=== PATIENT | female | born 1980 | race Caucasian/White ===

== ENCOUNTER 2020-02-02 10:01 | Emergency (ER) | payer MEDICAID, SELFPAY ==
[2020-02-02] VITALS (7 sets, daily range): BP systolic 113–142; BP diastolic 68–85; PULSE 68–76; RESP 18; TEMP 36.7; O2SAT 96–97; BMI 28.3
--- NOTE | 2020-02-02 10:01 | ECG_ITS ---
APPROVED REPORT Exam: Resting ECG HR:74 bpm ECG Measurements Heart Rate 74 AXES OK 128 P 30 QRSd 86 QRS 7 QT 380 T 20 QTc 421 <Conclusion> Normal sinus rhythm Normal ECG Electronically signed by : Mason Anderson, 02/02/2020 16:51:13
--- NOTE | 2020-02-02 10:16 | HMH.EDGENADL ---
ED Disposition Clinical Impression: Atypical chest pain Disposition: Home, Self-Care Condition on Discharge: Good Instructions: DI for Atypical Chest Pain Additional Instructions: Additional instructions for CHEST PAIN: See your physician or cardiology as soon as possible for further evaluation. Return immediately if worsening chest pain, vomiting, shortness of breath, fever, coughing of blood. Referrals: Provider,MD Annamaria [Referring] - Ricky De Guzman MD [Staff Physician] - - Critical Care Critical Care Time: No Attestation: On , the high probability of a clinically significant, sudden or life threatening deterioration of the following system(s) required my full and direct attention, intervention and personal management. The time I documented below is in addition to time spent performing reported procedures but includes the following listed in this critical care notation. Medical Decision Making - Lance Inquiry Pt receiving controlled substance: No Vital Signs: 02/02/20 10:09 02/02/20 10:23 02/02/20 10:51 Temperature 98.1 F Temperature Source Oral Pulse Rate Pulse Rate [Right Radial] 74 74 76 Respiratory Rate 18 Blood Pressure Blood Pressure [Right Arm] 142/85 H 142/85 H 122/79 Blood Pressure Mean [Right Arm] 104 104 93 Blood Pressure Source Blood Pressure Source [Right Arm] Automatic Cuff Automatic Cuff Automatic Cuff Blood Pressure Position Blood Pressure Position [Right Arm] Sitting Sitting Sitting 02 Sat by Pulse Oximetry 97 97 96 Oxygen Delivery Method Room Air Room Air Room Air 02/02/20 11:13 02/02/20 11:35 02/02/20 12:51 Temperature Temperature Source Pulse Rate Pulse Rate [Right Radial] 71 68 68 Respiratory Rate Blood Pressure Blood Pressure [Right Arm] 123/82 119/77 113/68 Blood Pressure Mean [Right Arm] 95 91 83 Blood Pressure Source Blood Pressure Source [Right Arm] Automatic Cuff Automatic Cuff Automatic Cuff Blood Pressure Position Blood Pressure Position [Right Arm] Sitting Sitting Sitting 02 Sat by Pulse Oximetry 96 97 97 Oxygen Delivery Method Room Air Room Air Room Air 02/02/20 14:48 Temperature 98.1 F Temperature Source Oral Pulse Rate 75 Pulse Rate [Right Radial] Respiratory Rate 18 Blood Pressure 117/77 Blood Pressure [Right Arm] Blood Pressure Mean [Right Arm] Blood Pressure Source Automatic Cuff Blood Pressure Source [Right Arm] Blood Pressure Position Sitting Blood Pressure Position [Right Arm] 02 Sat by Pulse Oximetry Oxygen Delivery Method Room Air - Lab Data Lab Results 02/02/20 10:10: WBC 7.1, RBC 4.63, Hgb 14.6, Hct 42.4, MCV 91.6, MCH 31.6 H, MCHC 34.5, RDW 12.5, Plt Count 267, MPV 7.6, Neut % (Auto) 49.8, Lymph % (Auto) 39.3, Kendall % (Auto) 6.5, Eos % (Auto) 3.5, Baso % (Auto) 0.9, Neut # (Auto) 3.5, Lymph # (Auto) 2.8, Kendall # (Auto) 0.5, Eos # (Auto) 0.3, Baso # (Auto) 0.1 02/02/20 10:10: Sodium 138, Potassium 4.3, Chloride 101, Carbon Dioxide 25, Anion Gap 16.3 H, BUN 12, Creatinine 0.60, Estimated Creat Clear 146, Estimated GFR 110, Est GFR ( Amer) 133, Glucose 112 H, Calcium 9.5, Troponin I < 0.01 02/02/20 13:49: Troponin I < 0.01 Result diagrams: 02/02/20 10:10 02/02/20 10:10 Orders (Tests/Meds): ED MEDICATIONS Discontinued Medications Generic Name Dose Route Start Last Admin Trade Name Freq PRN Reason Stop Dose Admin Aspirin 324 mg 02/02/20 10:19 02/02/20 10:25 Aspirin 81mg Chewable Tablet PO 02/02/20 10:20 324 mg ONCE ONE Administration - Radiology Data #1 Image(s): Chest Image Reviewed: Yes I reviewed the patient's radiology image Preliminary Findings: Normal/NAD - ECG Data Tracing #1 EKG interpreted by Sergey Delgado MD: Rhythm: sinus Rate: 74 [place]: normal Ectopy: none Conduction: normal ST Segment Changes: none T Wave Changes: none Q Waves: none No evidence of acute ischemia or injury - Reevaluation(s) Time: 14:41 R
--- NOTE | 2020-02-02 10:19 | XR_ITS ---
PROCEDURE: XR CHEST 2V Patient Age:39Y CLINICAL HISTORY: chest pain Right-sided chest pain 2 episodes nonsmoker COMPARISON: No exams were available for comparison FINDINGS: PA and lateral chest performed Lungs are well expanded and clear with no active disease Heart is normal in size with normal cardiomediastinal silhouette and normal pulmonary vascularity. There is a prominent calcified node at the azygos region measuring up to 4 cm height x 2.5 cm transverse. This most typically reflects old granulomatous disease particularly in our region or histoplasmosis comment.-But no peripheral granulomas however to further reflect such. No calcified hilar nodes either.. Other entities would be unusual but you may want to keep further explore any persistent chest symptoms. Clear lungs and normal interstitial pattern speak against other entities such as as silicosis.. No acute bony abnormalities. Chest wall unremarkable. No pneumothorax. No pleural effusion. IMPRESSION: Lungs clear . No active cardiopulmonary evident Incidental note large calcified azygos node most likely reflects old granulomatous disease Dictated by: Olvin Pham MD 02/02/2020 18:37 Electronically signed by Olvin Pham MD in [place] 02/02/2020 18:37
[2020-02-02 10:26] LABS: Basophils # 0.1 K/mm3 (0-0.2); Basophils % 0.9 % (0.1-2.0); Eosinophils # 0.3 K/mm3 (0.0-0.4); Eosinophils % 3.5 % (0.1-12.0); Hematocrit 42.4 % (37.0-47.0); Hemoglobin 14.6 g/dL (12.2-16.2); Lymphocytes # 2.8 K/mm3 (0.7-4.5); Lymphocytes % 39.3 % (10-50); Mean Corpuscular HGB Conc 34.5 g/dL (31.8-35.4); Mean Corpuscular Hemoglobin 31.6 pg (27.0-31.2); Mean Corpuscular Volume 91.6 fl (81-99); Mean Platelet Volume 7.6 fl (7.4-10.4); Monocytes # 0.5 K/mm3 (0.1-1.0); Monocytes % 6.5 % (1.7-9.3); Neutrophils # 3.5 K/mm3 (1.8-7.8); Neutrophils % 49.8 % (37.0-80.0); Platelet Count 267 K/mm3 (142-424); Red Blood Count 4.63 M/mm3 (4.20-5.40); Red Cell Distribution Width 12.5 % (11.5-17.5); White Blood Count 7.1 K/mm3 (4.8-10.8)
[2020-02-02 10:27] LABS: Chloride 101 mmol/L (98-107)
[2020-02-02 10:28] LABS: Potassium 4.3 mmoL/L (3.5-5.1); Sodium 138 mmol/L (136-145)
--- NOTE | 2020-02-02 10:29 | PC.NURSE ---
Pt to rad.
[2020-02-02 10:30] LABS: Blood Urea Nitrogen 12 mg/dl (7-17); Creatinine Clearance Estimated 146 mL/min (50-200); Estimated Glomerular Filt Rate 110 ml/min (>60); GFR (African American) 133 ML/MIN (>60)
[2020-02-02 10:31] LABS: Anion Gap 16.3 mEq/L (5-15); Calcium 9.5 mg/dl (8.4-10.2); Carbon Dioxide 25 mmol/L (22.0-30.0); Glucose 112 mg/dl (74-100)
[2020-02-02 10:44] LABS: Troponin I < 0.01 ng/ml (0.00-0.034)
[2020-02-02 14:25] LABS: Troponin I < 0.01 ng/ml (0.00-0.034)
== END 2020-02-02 14:49 | disposition home or self-care (01) ==
PROVIDERS: Emergency Provider Emergency Medicine
DX: R07.89 Other chest pain (principal); R03.0 Elevated blood-pressure reading, without diagnosis of hypertension; E78.5 Hyperlipidemia, unspecified; Z82.49 Family history of ischemic heart disease and other diseases of the circulatory system
CPT/HCPCS: 71046; 80048; 84484; 85025; 93005; 99284

== ENCOUNTER → 2020-02-20 07:36 | Outpatient (CLI) | payer SELFPAY ==
--- NOTE | 2020-02-20 07:47 | CT_ITS ---
PROCEDURE: CT HEART W CALCIUM SCORE CLINICAL HISTORY: chest pain COMPARISON: No exams were available for comparison TECHNIQUE: Axial images obtained with sagittal and coronal reformats. All CT scans at the facility use one or more dose reduction, viz: automated exposure control, ma/kV adjustment per patient size (including targeted exams where dose is matched to indication, i.e. head), or iterative reconstruction technique. FINDINGS: The coronary artery calcium score is 0 indicating no identifiable calcific atherosclerotic plaque. Very low cardiovascular disease risk There is minimal pericardial thickening inferiorly and anteriorly. There are trace bilateral effusions with evidence of old granulomatous disease. IMPRESSION: 1. No identifiable calcific plaque with very low cardiovascular disease risk. 2. Minimal pericardial thickening. 3. Trace bilateral pleural effusions Dictated b Mikie Contreras MD 02/20/2020 15:32 Mikie Contreras MD in [facility] 02/20/2020 15:32
== END ==
PROVIDERS: PCP Family Medicine; Visit Provider Urology
DX: Z13.6 Encounter for screening for cardiovascular disorders (principal); R07.89 Other chest pain; R06.00 Dyspnea, unspecified; R42 Dizziness and giddiness; R94.31 Abnormal electrocardiogram [ECG] [EKG]; E78.5 Hyperlipidemia, unspecified; R51 Headache
CPT/HCPCS: 75571

== ENCOUNTER → 2020-02-20 08:37 | Outpatient (CLI) | payer MEDICAID, SELFPAY ==
--- NOTE | 2020-02-20 08:38 | CA_ITS ---
APPROVED REPORT Exam: Exercise Treadmill Technologist: Mamie Winston Ht: 5 ft 4 in Wt: 170 lbs BSA: 1.83 m2 HR: 74 bpm BP: 124/79 mmHg Indications: Chest pain, Shortness of Breath, Dizziness Medical History Medications: Omeprazole,,,,, Aspirin,,,,, Propranolol,,,,, Atorvastatin,,,,, Venlafaxine,,,,, Trazodone,,,,, Stress Test Details Test: Dank HR Resting HR: 81 bpm Max Heart Rate (APMHR): 179 bpm Max HR Achieved: 153 bpm Target HR (85% APMHR): 152 bpm % of APMHR: 85 Recovery HR: 89 bpm BP Resting BP: 124.0/79.0 mmHg Max BP: 178.0/92.0 mmHg Recovery BP: 120.0/74.0 mmHg ECG Clinical Exercise duration: 07:59 min Highest Stage Achieved: Exercise capacity: 10.1 METs Stress ECG Conclusion Resting ECG: Normal sinus rhythm Patient exercised 7:59 on Dank Protocol. Test stopped due to shortness of air, fatigue, head pounding. Symptoms: Mild chest pressure most likely secondary to dyspnea. Arrhythmias/Ectopy: None ST-T Changes: Normal ST response to exercise. Conclusion: Normal GXT. GXT only (no imaging). Electronically signed by : George Logan, 02/20/2020 16:57:48
--- NOTE | 2020-02-20 08:38 | CA_ITS ---
APPROVED REPORT EXAM: Comprehensive 2D, Doppler, and color-flow Echocardiogram Counter Dish Carrier: Ashley Jacinto RVT Ht: 5 ft 4 in Wt: 172lbs BSA: 1.83 BP: 112/75 mmHg Indications: CP,SOA,DIZZINESS,HTN,HLD,FAMILY HX HD TDS-PT BREATHING 2D Dimensions LVOT 1.99 cm (M/F) 1.5-2.5 M-Mode Dimensions RVDd 3.77 cm (0.9-2.6) LVDd 5.30 cm (3.5-5.7) LVDs 3.81 cm (3.5-5.7) IVSd 0.36 cm (0.6-1.1) PWd 0.56 cm (0.6-1.1) EF (Teich) 54.00% FS 28.10% EDV (Teich) 135.30 mL ESV (Teich) 62.30 mL LV Diastology E/A Ratio 0.95 Mitral Valve MV A Velocity 52.00 (40-130 cm/s) Left Ventricle Left atrium is normal size, left ventricle is normal size, left ventricle wall thickness is upper limit of the normal, there is preserved left ventricular systolic function, visually estimated ejection fraction 55% with no regional wall motion abnormality, diastolic parameters are within normal range. Right Ventricle Right atrium and right ventricular qualitatively normal size and function. Aortic Valve Aortic valve is grossly normal, there is no aortic stenosis or aortic insufficiency. Mitral Valve Mitral valve is grossly normal, there is mild mitral regurgitation. Tricuspid Valve Tricuspid valve is grossly normal, there is mild tricuspid regurgitation, tricuspid regurgitation jet velocity is inadequate for calculation of the right ventricular systolic pressure. Pulmonic Valve Pulmonic valve is poorly visualized. Great Vessels Aortic root is normal size. Pericardium No significant pericardial effusion noted. Conclusion 1. Normal left ventricular size, preserved left ventricular systolic function, visually estimated ejection fraction 55% with no regional wall motion abnormality, diastolic parameters are within normal range. 2. Mild mitral and tricuspid regurgitation. 3. No significant pericardial effusion noted. Electronically signed by : George Logan, 02/21/2020 11:21:45
== END ==
PROVIDERS: PCP Family Medicine; Visit Provider Urology
DX: R07.89 Other chest pain (principal); R06.00 Dyspnea, unspecified; R42 Dizziness and giddiness; R94.31 Abnormal electrocardiogram [ECG] [EKG]; R51 Headache; E78.5 Hyperlipidemia, unspecified
CPT/HCPCS: 93017; 93306

== ENCOUNTER → 2020-02-28 09:26 | Day surgery (SDC) | payer MEDICAID, SELFPAY ==
[2020-02-28] VITALS (12 sets, daily range): BP systolic 82–122; BP diastolic 52–79; PULSE 52–74; RESP 16–20; TEMP 36.6; O2SAT 93–98; BMI 29.2
--- NOTE | 2020-02-28 | IR_ITS ---
APPROVED REPORT Patient Location: Outpatient Neighborhood Conservation Officer: ERIC Landeros RT (R) PROCEDURES Left heart catheterization Left ventriculogram Selective coronary angiogram INDICATION Abnormal stress test Informed consent was obtained prior to the procedure. COMPLICATIONS none Estimated Blood Loss: less than 10 mls TECHNIQUE One percent lidocaine used to anesthetize the right anterior aspect of the wrist. The right radial artery was accessed via the Seldinger technique. A 6 K[place]z sheath was placed in the right radial artery. 2.5 mg of verapamil, 800 mcg of nitroglycerin, 1mg Lidocaine and 5000 U Heparin were given through the arterial sheath. The trap catheter was also used to perform left heart catheterization, left ventriculogram and selective coronary angiogram. At the end of the procedure the sheath was removed good hemostasis was achieved using Traclet band, patient was transferred to the postop holding area in stable condition. ANGIOGRAPHIC RESULTS The left main artery Normal The left anterior descending artery Normal The circumflex artery Normal The right coronary artery Dominant normal The SALTER ventriculogram reveals Normal 65% The left ventricular end-diastolic pressure 10 mmHg IMPRESSION Normal coronary arteries Normal ejection fraction Normal left ventricular end-diastolic pressure PLAN 1. Evaluation of noncardiac symptomatology Electronically signed by : Ricky De Guzman, 02/28/2020 11:47:56
[2020-02-28 09:58] LABS: Chloride 103 mmol/L (98-107)
[2020-02-28 09:59] LABS: Basophils # 0.1 K/mm3 (0-0.2); Eosinophils # 0.3 K/mm3 (0.0-0.4); Eosinophils % 4.7 % (0.1-12.0); Hematocrit 39.8 % (37.0-47.0); Lymphocytes # 2.1 K/mm3 (0.7-4.5); Lymphocytes % 36.3 % (10-50); Mean Corpuscular HGB Conc 35.1 g/dL (31.8-35.4); Mean Corpuscular Hemoglobin 31.4 pg (27.0-31.2); Mean Corpuscular Volume 89.4 fl (81-99); Mean Platelet Volume 8.5 fl (7.4-10.4); Monocytes # 0.3 K/mm3 (0.1-1.0); Monocytes % 5.3 % (1.7-9.3); Neutrophils # 3.1 K/mm3 (1.8-7.8); Neutrophils % 52.6 % (37.0-80.0); Platelet Count 275 K/mm3 (142-424); Potassium 4.4 mmoL/L (3.5-5.1); Red Blood Count 4.45 M/mm3 (4.20-5.40); Red Cell Distribution Width 12.4 % (11.5-17.5); Sodium 140 mmol/L (136-145); White Blood Count 5.8 K/mm3 (4.8-10.8)
[2020-02-28 10:01] LABS: Blood Urea Nitrogen 13 mg/dl (7-17); Creatinine Clearance Estimated 129 mL/min (50-200); Estimated Glomerular Filt Rate 92 ml/min (>60); GFR (African American) 112 ML/MIN (>60)
[2020-02-28 10:02] LABS: Anion Gap 13.4 mEq/L (5-15); Calcium 9.5 mg/dl (8.4-10.2); Carbon Dioxide 28 mmol/L (22.0-30.0); Glucose 102 mg/dl (74-100)
[2020-02-28 10:43] LABS: Coronavirus 19 IgG Antibody Negative (Negative); Coronavirus 19 IgM Antibody Negative (Negative)
== END ==
PROVIDERS: PCP Family Medicine; Visit Provider Internal Medicine
DX: I20.8 Other forms of angina pectoris (principal); R94.39 Abnormal result of other cardiovascular function study; I10 Essential (primary) hypertension; E78.5 Hyperlipidemia, unspecified; Z79.52 Long term (current) use of systemic steroids; Z79.899 Other long term (current) drug therapy
CPT/HCPCS: 80048; 85025; 86328; 93458; 99152; C1725; C1769; J1644; Q9967

== ENCOUNTER → 2020-03-05 08:53 | Outpatient (CLI) | payer MEDICAID, SELFPAY ==
--- NOTE | 2020-03-05 08:53 | CT_ITS ---
PROCEDURE: CT HEAD/BRAIN WO/W CON CLINICAL INDICATION: cp/dyspnea/cp during GXT Headache COMPARISON: No exams were available for comparison TECHNIQUE: IV Contrast: 100ML OPITRAY 320 Axial images obtained. All CT scans at the facility use one or more dose reduction, viz: automated exposure control, ma/kV adjustment per patient size (including targeted exams where dose is matched to indication, i.e. head), or iterative reconstruction technique. FINDINGS: No midline shift, mass effect, intracranial hemorrhage, hydrocephalus, or extra-axial fluid collection is evident. No enhancing lesions are evident. The calvarium has an unremarkable appearance. Mastoids Sinuses IMPRESSION: Negative CT head without with contrast Dictated by: Mikie Contreras MD 03/05/2020 15:09 Mikie Contreras MD in [place] 03/05/2020 15:09
== END ==
PROVIDERS: PCP Family Medicine; Visit Provider Nurse Practitioner Family
DX: R94.39 Abnormal result of other cardiovascular function study (principal); R94.31 Abnormal electrocardiogram [ECG] [EKG]; R07.89 Other chest pain; R06.00 Dyspnea, unspecified; R42 Dizziness and giddiness; I20.8 Other forms of angina pectoris; E78.2 Mixed hyperlipidemia; I10 Essential (primary) hypertension; R51 Headache
CPT/HCPCS: 70470; Q9967

== ENCOUNTER → 2020-03-17 14:53 | Outpatient (CLI) | payer MEDICAID, SELFPAY | PROVIDERS: PCP Family Medicine; Visit Provider Nurse Practitioner Family | DX: G47.33 Obstructive sleep apnea (adult) (pediatric) (principal); R40.0 Somnolence; R06.03 Acute respiratory distress; R53.83 Other fatigue | CPT/HCPCS: G0399 ==

== ENCOUNTER → 2020-03-28 08:23 | Outpatient (CLI) | payer MEDICAID, SELFPAY ==
--- NOTE | 2020-03-28 08:24 | US_ITS ---
PROCEDURE: US GALLBLADDER CLINICAL INDICATION: Right upper quad pain COMPARISON: No exams were available for comparison FINDINGS: Pancreas: Unremarkable/Not well seen Liver: There is a small area of decreased echogenicity within the liver anterior to the upper aspect of the gallbladder fossa. This area measures approximately 3 cm and is of questionable clinical significance.. There is appropriate direction of blood flow within a non dilated portal vein. There is some increased echogenicity of the remaining liver suggesting mild hepatic steatosis. Right kidney: Unremarkable appearing. No hydronephrosis. Gallbladder: No stones are evident. There is no gallbladder wall thickening. Common duct is normal in diameter. Common bile duct is 4 mm. IMPRESSION: 1. Negative gallbladder ultrasound. 2. Hypoechoic air within the central aspect of the liver anterior to the gallbladder. This is of unknown clinical significance be seen with focal sparing of fatty liver. MRI of the liver without and with enhancement may provide further evaluation. Dictated by: Mikie Contreras MD 03/28/2020 11:13 Mikie Contreras MD in [place] 03/28/2020 11:13
== END ==
PROVIDERS: PCP Family Medicine; Visit Provider Surgery
DX: R10.11 Right upper quadrant pain (principal)
CPT/HCPCS: 76705

== ENCOUNTER → 2020-04-04 11:10 | Outpatient (CLI) | payer MEDICAID, SELFPAY ==
[2020-04-04 12:26] LABS: Coronavirus 19 IgG Antibody Negative (Negative); Coronavirus 19 IgM Antibody Negative (Negative)
== END ==
PROVIDERS: Visit Provider Internal Medicine Gastroenterology
DX: Z01.84 Encounter for antibody response examination (principal)
CPT/HCPCS: 36415; 86328

== ENCOUNTER 2020-04-04 11:22 | Day surgery (SDC) | payer MEDICAID, SELFPAY ==
[2020-04-01 08:43] VITALS: BMI 29.2
[2020-04-04 11:52] VITALS: BP 119/69; PULSE 66; RESP 16; TEMP 36.8; O2SAT 98
[2020-04-04 11:58] LABS: Urine Pregnancy, HCG Qual. Negative (Negative)
[2020-04-04 12:41] VITALS: O2SAT 97
--- NOTE | 2020-04-04 12:58 | P.PCN_ITS ---
[facility] Procedure Note Procedure Note:: Upper Endoscopy Procedure Report: Esophagogastroduodenoscopy with cold biopsies and TTS balloon dilation Endoscopost: Braden Atwood II, MD Referring Physician: Patricia Bustos DO Date of Procedure: April 04, 2020 Equipment: Olympus GIF 180 standard upper endoscope Sedation: MAC sedation Indications: Mrs. Quick is a 39-year-old female with longstanding GERD/gastroesophageal reflux. She does take omeprazole 20 mg by mouth twice daily and still has heartburn daily. She reports reflux, belching, bloating, nausea and early satiety. She was feeling as if her throat was closing with laryngospasm and this has gradually improved with the increased dose of omeprazole. She does get some dyspepsia with midepigastric abdominal discomfort. She also has some bowel irregularity with chronic constipation. She is due to have an umbilical hernia repaired. This is her first upper endoscopy performed for diagnostic purposes. Procedure: Prior to the procedure, a history and physical exam was performed, and patient's medications and allergies were reviewed. The risks, benefits and alternatives of the sedation and procedure were discussed with the patient. All questions were answered and informed consent was obtained. The patient was brought to the procedure room. Patient identification and proposed procedure were verified by the physician and the nurse. The patient was placed in a left lateral decubitus position and the scope was passed under direct vision. Throughout the procedure , the patient's blood pressure, pulse, and oxygen saturations were monitored continuously. The upper GI endoscopy was accomplished without difficulty. The patient tolerated the procedure well. Findings: The scope was passed directly into the upper esophagus and advanced to the third portion of the duodenum. The post bulbar duodenum and duodenal bulb were normal with normal mucosa and conniventes. The scope was withdrawn through a normal duodenal bulb and pylorus into the stomach. There was moderate bile reflux with mild linear reactive gastropathy of the antrum and body of the stomach. The remainder of the antrum, body and fundus of the stomach were grossly normal. Upon retroflexion there was a very small sliding 1 to 2 cm hiatal hernia. 2 biopsies were taken in the antrum and along the lesser curvature for histology to rule out gastritis and/or H pylori. The scope was then withdrawn into the esophagus. There was a serrated Z line consistent with chronic GERD but there was no evidence of reflux esophagitis or Rowe's. Biopsies were taken at the GE junction to rule out intestinal metaplasia. There were tertiary contractions and evidence of moderate esophageal dysmotility. The entire esophagus was dilated to 60 [place]/20 mm with a TTS hydrostatic balloon. There was mild resistance at the cricopharyngeus. The remainder of the esophageal mucosa was normal. Impression: 1. Mild cricopharyngeal spasm status post dilation to 20 mm 2. Nonerosive GERD with moderate esophageal dysmotility and very small 1 to 2 cm sliding hiatal hernia 3. Bile reflux with linear reactive gastropathy Plan: I will follow-up the biopsies. 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 I would recommend dietary measures, fiber bowel regimen and promotility therapy. I will also have her follow-up in 8 to 12 weeks to assess level of improvement.
--- NOTE | 2020-04-04 12:58 | P.PN_ITS ---
[facility] Anesthesia Checklist - Patient Identification Patient Identification: Arm Band, Verbal (Name & ) - Structural Data Admitted From: Home Planned Operative Procedure/s: EGD Consent for Planned Operative Procedure(s) Verified: Yes Verified Documents: Surgical Consent, History and Physical - NPO Status Verified Time NPO: 00:00 - Chart Verification Results Verified: HCG - Additional verifications Patient : No Anesthesia Reactions: No - Airway Assessment C-Spine Mobility Assessed: Yes TMJ Mobility Assessed: Yes Dentition: Good Dentition - Neurological Assessment Level of Consciousness: Awake, Alert, Appropriate, Follows Commands Hx Seizures: No Numbness or tingling in extremities: No - Anesthesia Plan Anesthesia Risk discussed: Yes Anesthesia Plan: Verified ASA Class: III Anesthesia Type: MAC [facility] History I have reviewed the patient's past medical history: Yes Medical History: Reports:: Anxiety, Depression, Gastroesophageal Reflux Disease(GERD), Hyperlipidemia, Hypertension Denies:: Cancer, Diabetes Mellitus Type 1, Diabetes Mellitus Type 2, Internal Pacemaker, MRSA, Seizures *Have you ever received a pneumonia vaccine?: No *Have you received a flu vaccine this season?: No Comment:: CAITLYN Anesthesia experience/problems:: None Other Surgeries: Yes: Cardiac Catheterization, Tubal Ligation. No: Pacemaker Amputation: No Fractures: No - *Social History Last grade of school completed: High school graduate Smoking Status: Never smoker # Packs/Day (cigarettes): 1 #Yrs smoked (if former smoker): 20 Alcohol Intake: never Alcohol Intake Frequency:: holidays/special occasions only Substance Use Type: denies use *Occupational Status:: employed Household Members: spouse *Travel in the last 8 weeks: None Family Hx:: Hypertension
[2020-04-04 13:03] VITALS: BP 106/69; PULSE 98; RESP 18; TEMP 36.7; O2SAT 92
[2020-04-04 13:13] VITALS: BP 106/68; PULSE 72; RESP 18; O2SAT 96
[2020-04-04 13:23] VITALS: BP 106/68; PULSE 73; RESP 18; O2SAT 98
[2020-04-04 13:40] VITALS: BP 105/56; PULSE 61; RESP 18; O2SAT 100
== END 2020-04-04 13:40 ==
LOC: OUTP 11:23
PROVIDERS: PCP Family Medicine; Visit Provider Internal Medicine Gastroenterology
PROC: 0DJ08ZZ Inspection of Upper Intestinal Tract, Via Natural or Artificial Opening Endoscopic (ICD-10-PCS; CPT 43235; principal; 2020-04-04 12:00)
DX: J39.2 Other diseases of pharynx (principal); K21.9 Gastro-esophageal reflux disease without esophagitis; K22.4 Dyskinesia of esophagus; K44.9 Diaphragmatic hernia without obstruction or gangrene; K31.9 Disease of stomach and duodenum, unspecified; E78.5 Hyperlipidemia, unspecified; I10 Essential (primary) hypertension; F41.9 Anxiety disorder, unspecified; F32.9 Major depressive disorder, single episode, unspecified; G47.33 Obstructive sleep apnea (adult) (pediatric); Z79.82 Long term (current) use of aspirin; Z79.899 Other long term (current) drug therapy
CPT/HCPCS: 43239; 43249; 81025; C1726

== ENCOUNTER → 2020-04-08 10:10 | Outpatient (CLI) | payer MEDICAID, SELFPAY ==
--- NOTE | 2020-04-08 10:12 | NM_ITS ---
PROCEDURE: NM HEPATOBILIARY W PHARM CLINICAL INDICATION: right upper quad pain COMPARISON: No exams were available for comparison TECHNIQUE: DOSE: 8.59 mCi technetium Choletec and 1.6 mcg of CCK FINDINGS: Homogeneous activity is present within the hepatic parenchyma. Activity is present in the gallbladder by 5 minutes. Activity is present in the small bowel by 15 minutes. The gallbladder ejection fraction is calculated to be 86 percent. CCK-The patient did not report pain or other symptoms during CCK infusion. At 44 minutes there was a linear area of increased activity along the left hepatic lobe directed cephalad. This is of questionable clinical significance and is not a typical location for GE reflux may be artifactual in nature. IMPRESSION: Unremarkable a patent biliary scan. No evidence of common or cystic duct obstruction with normal gallbladder ejection fraction Unusual linear area of activity noted along left hepatic lobe possibly artifactual Dictated by: Mikie Contreras MD 04/08/2020 19:12 Mikie Contreras MD in [place] 04/08/2020 19:12
--- NOTE | 2020-04-08 10:31 | HMH.ITSHM ---
Current Home Medications as stated by this patient Isabelle Quick or quality assurance representative. []TRAZADONE OMEPRAZOLE ATORVASTATIN PROPRANOLOL ASA EFFEXOR
== END ==
PROVIDERS: PCP Family Medicine; Visit Provider Surgery
DX: R10.11 Right upper quadrant pain (principal)
CPT/HCPCS: 78227; A9537; J2805

== ENCOUNTER 2020-05-26 11:41 | Day surgery (SDC) | payer MEDICAID, SELFPAY ==
[2020-05-26] VITALS (7 sets, daily range): BP systolic 103–125; BP diastolic 59–85; PULSE 68–80; RESP 16–20; TEMP 36.4–36.7; O2SAT 93–100; BMI 29.2
[2020-05-26 12:59] LABS: Urine Pregnancy, HCG Qual. Negative (Negative)
[2020-05-26 13:09] LABS: Coronavirus 19 IgG Antibody Negative (Negative); Coronavirus 19 IgM Antibody Negative (Negative)
--- NOTE | 2020-05-26 13:13 | HMH.ANESCL ---
[facility] Anesthesia Checklist - Patient Identification Patient Identification: Arm Band - Structural Data Admitted From: Home Planned Operative Procedure/s: colonoscopy Consent for Planned Operative Procedure(s) Verified: Yes Verified Documents: Surgical Consent, History and Physical - NPO Status Verified Time NPO: 00:00 - Additional verifications Anesthesia Reactions: No - Airway Assessment C-Spine Mobility Assessed: Yes (mp2) TMJ Mobility Assessed: Yes Dentition: Good Dentition - Neurological Assessment Level of Consciousness: Awake, Alert - Anesthesia Plan Anesthesia Risk discussed: Yes Anesthesia Plan: Verified ASA Class: II Anesthesia Type: MAC [facility] History I have reviewed the patient's past medical history: Yes Medical History: Reports:: Anxiety, Depression, Gastroesophageal Reflux Disease(GERD), Hyperlipidemia, Hypertension Denies:: Cancer, Diabetes Mellitus Type 1, Diabetes Mellitus Type 2, Internal Pacemaker, MRSA, Seizures *Have you ever received a pneumonia vaccine?: No *Have you received a flu vaccine this season?: No Anesthesia experience/problems:: nac Other Surgeries: Yes: Cardiac Catheterization, EGD, Tubal Ligation. No: Pacemaker Amputation: No Fractures: No - *Social History Last grade of school completed: High school graduate Smoking Status: Never smoker # Packs/Day (cigarettes): 1 #Yrs smoked (if former smoker): 20 Alcohol Intake: current Alcohol Intake Frequency:: a few times a month Substance Use Type: denies use *Occupational Status:: employed Housing: house Household Members: spouse, family, children *Travel in the last 8 weeks: None - Psychiatric History Pschychiatric History:: Reports:: Anxiety, Depression Family Hx:: Hypertension
--- NOTE | 2020-05-26 13:45 | HMH.ANESCL ---
[facility] Anesthesia Checklist - Structural Data Admitted From: Home Planned Operative Procedure/s: colonoscopy Consent for Planned Operative Procedure(s) Verified: Yes - Additional verifications Anesthesia Reactions: No - Airway Assessment C-Spine Mobility Assessed: Yes TMJ Mobility Assessed: Yes Dentition: Good Dentition - Neurological Assessment Level of Consciousness: Awake, Alert, Appropriate - Anesthesia Plan Anesthesia Risk discussed: Yes Anesthesia Plan: Verified ASA Class: II Anesthesia Type: MAC [facility] History I have reviewed the patient's past medical history: Yes Medical History: Reports:: Anxiety, Depression, Gastroesophageal Reflux Disease(GERD), Hyperlipidemia, Hypertension Denies:: Cancer, Diabetes Mellitus Type 1, Diabetes Mellitus Type 2, Internal Pacemaker, MRSA, Seizures *Have you ever received a pneumonia vaccine?: No *Have you received a flu vaccine this season?: No Anesthesia experience/problems:: none Other Surgeries: Yes: No Previous Surgery, Cardiac Catheterization, EGD, Tubal Ligation. No: Pacemaker Amputation: No Fractures: No - *Social History Last grade of school completed: High school graduate Smoking Status: Never smoker # Packs/Day (cigarettes): 1 #Yrs smoked (if former smoker): 20 Alcohol Intake: current Alcohol Intake Frequency:: a few times a month Substance Use Type: denies use *Occupational Status:: employed Housing: house Household Members: spouse, family, children *Travel in the last 8 weeks: None - Psychiatric History Pschychiatric History:: Reports:: Anxiety, Depression Family Hx:: Hypertension
--- NOTE | 2020-05-26 13:59 | HMH.PROC ---
[facility] Procedure Note Procedure Note:: Colonoscopy Procedure Report: Colonoscopy with cold snare polypectomy Endoscopist: Braden Atwood II, MD Referring physician: Patricia Bustos DO Date of Procedure: May 26, 2020 Equipment: Olympus 180 variable stiffness pediatric colonoscope Sedation: MAC sedation Indication: Mrs. Quick is a 39-year-old female who is here for diagnostic colonoscopy. The patient has had some change in bowel habit and incomplete defecation/obstipation. Her bloating and gassiness markedly increased with the MiraLAX plus Konsyl taken daily. She did have marked improvement when she stopped the Konsyl. She will skip multiple days without a bowel movement. She does report 2 maternal aunts with colon cancer. She reports no rectal bleeding, weight loss or significant abdominal pain. Procedure: Prior to the procedure, a history and physical exam was performed, and patient's medications and allergies were reviewed. The risks, benefits and alternatives of the sedation and procedure were discussed with the patient. All questions were answered and informed consent was obtained. The patient was brought to the procedure room. Patient identification and proposed procedure were verified by the physician and the nurse. The patient was placed in a left lateral decubitus position and the scope was passed under direct vision. Throughout the procedure, the patient's blood pressure, pulse, and oxygen saturations were monitored continuously. The colonoscopy was accomplished without difficulty. The patient tolerated the procedure well. Findings: On digital rectal examination there was normal rectal tone. There were no external hemorrhoids. There was an anterior rectocele. The colonoscope was introduced through the anal canal to the rectum and advanced to the cecum. The ileocecal valve and appendiceal orifice were identified. The scope was advanced a short distance into the ileum which appeared grossly normal. The scope was then withdrawn into the colon. There were a total of 3 colon polyps (ascending x2 (8 mm and 3 mm) and descending x1 (10 mm)) which were all removed via cold snare polypectomy. The remaining cecum, ascending, transverse, descending, sigmoid and rectum were grossly normal. There was mild colonic redundancy. There were no mucosal abnormalities identified. Upon retroflexion within the rectum there were grade 1-2 internal hemorrhoids.The preparation was excellent throughout with [place] Preparation Score of 9. The cecal time was 12 minutes. Impression: 1. Colonic polyps x3 (ranging in size from 3 to 10 mm) 2. Anterior rectocele 3. Grade 1-2 internal hemorrhoids Plan: I will follow up the polyp histology and recommend repeat screening/surveillance colonoscopy again in 3 to 5 years based upon the size and adenomatous nature as well as the patient's age and family history. I do feel that the patient has some outlet constipation/pelvic floor syndrome. I would consider pelvic floor physical therapy. I would also consider adding Zelnorm.
== END 2020-05-26 14:50 | disposition home or self-care (01) ==
PROVIDERS: PCP Family Medicine; Visit Provider Internal Medicine Gastroenterology
PROC: 0DJD8ZZ Inspection of Lower Intestinal Tract, Via Natural or Artificial Opening Endoscopic (ICD-10-PCS; CPT 45378; principal; 2020-05-26 13:30)
DX: K63.5 Polyp of colon; K64.0 First degree hemorrhoids; K62.3 Rectal prolapse; K21.9 Gastro-esophageal reflux disease without esophagitis; E78.5 Hyperlipidemia, unspecified; I10 Essential (primary) hypertension; F41.9 Anxiety disorder, unspecified; F32.9 Major depressive disorder, single episode, unspecified; Z79.899 Other long term (current) drug therapy
CPT/HCPCS: 45385; 36415; 81025; 86328

== ENCOUNTER → 2022-08-11 11:57 | Outpatient (CLI) | payer OTHER, SELFPAY ==
[2022-08-11 12:52] LABS: Erythrocyte Sedimentation Rate 11 mm/hr (0-20)
[2022-08-11 14:03] LABS: Vitamin B12 661 pg/mL (239-931)
[2022-08-12 13:12] LABS: Angiotensin Converting Enzyme 57 U/L (14-82); Rapid Plasma Reagin Ab Titer Non Reactive (NonRea<1:1)
[2022-08-13 16:15] LABS: Anti-Striation (muscle) Abs Negative (Neg:<1:100)
[2022-08-23 03:11] LABS: AChR Binding Abs <0.03
[2022-08-23 03:12] LABS: AChR Blocking Abs 10
[2022-08-23 03:13] LABS: AChR Modulating Ab 0
[2022-08-23 03:14] LABS: MuSK Antibodies <1.0
== END ==
PROVIDERS: PCP Family Medicine; Visit Provider Specialist
DX: H02.401 Unspecified ptosis of right eyelid (principal); H49.10 Fourth [trochlear] nerve palsy, unspecified eye
CPT/HCPCS: 36415; 82164; 82607; 83519; 85651; 86255; 86593

== ENCOUNTER → 2022-09-01 12:19 | Outpatient (CLI) | payer OTHER, SELFPAY ==
--- NOTE | 2022-09-01 12:23 | XR_ITS ---
FINAL REPORT CLINICAL HISTORY: Granulomatoous disease COMPARISON: 02/02/2020 FINDINGS: PA and lateral views of the chest were obtained. The cardiac and mediastinal silhouettes are within normal limits. There is granulomatous disease, unchanged.. There is no pleural effusion or pneumothorax. No acute osseous abnormality is identified. IMPRESSION: Granulomatous disease, no change from prior exam. Reviewed, Interpreted and Dictated by Susannah Morillo MD Transcribed by Linsey Kiser Authenticated and [facility]
[2022-09-06 00:03] LABS: Lyme B. burgdorferi PCR Blood Negative (Negative)
== END ==
PROVIDERS: PCP Family Medicine; Visit Provider Specialist
DX: H02.401 Unspecified ptosis of right eyelid (principal); J84.10 Pulmonary fibrosis, unspecified
CPT/HCPCS: 36415; 71046; 87476

== ENCOUNTER → 2022-09-03 12:52 | Outpatient (CLI) | payer OTHER, SELFPAY ==
--- NOTE | 2022-09-03 12:56 | MM_ITS ---
PROCEDURE INFORMATION: Exam: Bilateral Screening 3D Mammography Exam date and time: 09/03/2022 12:56 PM Age: 42 years old Clinical indication: Screening mammogram TECHNIQUE: Imaging protocol: Bilateral Screening tomosynthesis and 2D mammography including computer-aided detection (CAD) when performed. COMPARISON: No relevant prior studies available. FINDINGS: MAMMOGRAPHY: Breast composition: The breast is heterogeneously dense, which may obscure small masses. Mass: 0.6 cm mass within the outer anterior right breast, not well-delineated on MLO should be further assessed with spot views in CC/MLO projection. Ultrasound should also be performed. Architectural distortion: No new or suspicious architectural distortion. Calcifications: Calcifications within the upper outer posterior right breast should be assessed with spot MAGNIFICATION views in CC/ML projection for morphologic characterization. Asymmetric density: No new or suspicious asymmetric density is present Skin thickening: None. Axillary adenopathy: None. IMPRESSION: 1. Calcifications within the upper outer posterior right breast should be assessed with spot MAGNIFICATION views in CC/ML projection for morphologic characterization. 2. 0.6 cm mass within the outer anterior right breast, not well-delineated on MLO should be further assessed with spot views in CC/MLO projection. Ultrasound should also be performed. ASSESSMENT: BI-RADS category 0: Incomplete-need additional imaging evaluation and/or prior mammograms for comparison.
== END ==
PROVIDERS: PCP Family Medicine; Visit Provider Obstetrics & Gynecology
DX: Z12.31 Encounter for screening mammogram for malignant neoplasm of breast (principal)
CPT/HCPCS: 77063; 77067

== ENCOUNTER → 2022-09-15 14:41 | Outpatient (CLI) | payer OTHER, SELFPAY ==
--- NOTE | 2022-09-15 14:46 | MM_ITS ---
PROCEDURE INFORMATION: Exam: US Right Breast, Complete MG Right Diagnostic Breast Tomosynthesis Exam date and time: 09/15/2022 3:15 PM Age: 42 years old Clinical indication: Patient recalled on the basis of a screening mammogram for further evaluation; Right breast; calcifications and right breast mass TECHNIQUE: Imaging protocol: Complete ultrasound of all four quadrants of the right breast and the retroareolar regions, including ultrasound of the axilla when performed. Right Diagnostic tomosynthesis and 2D mammography including computer-aided detection (CAD) when performed. Unilateral or bilateral exam. COMPARISON: Mammogram dated 09/03/2022 FINDINGS: MAMMOGRAPHY: Digital diagnostic spot compression views of the right breast and 90 degree lateral view of the right breast demonstrate normal overlapping fibroglandular structures without persistent mass or asymmetry identified. Digital diagnostic magnification views of the posterior right upper outer quadrant demonstrate benign vascular and few scattered punctate benign calcifications ULTRASOUND: Sonographic images of the right breast including the retroareolar region, all 4 quadrants and the axilla do not demonstrate any solid masses. Minimal subcentimeter cystic changes present in the 1 o'clock axis 4 cm from the nipple. No architectural distortion or acoustical shadowing. No skin thickening or axillary adenopathy. IMPRESSION: No mammographic or sonographic evidence of malignancy. Annual bilateral mammographic screening is recommended unless otherwise clinically indicated. ASSESSMENT: BI-RADS Category 2: Benign
== END ==
PROVIDERS: PCP Family Medicine; Visit Provider Obstetrics & Gynecology
DX: R92.8 Other abnormal and inconclusive findings on diagnostic imaging of breast (principal)
CPT/HCPCS: 76641; 77061; 77065; G0279

== ENCOUNTER → 2022-10-20 14:03 | Outpatient (POV) | payer OTHER, SELFPAY | PROVIDERS: Visit Provider Specialist/Technologist | DX: Z00.00 Encounter for general adult medical examination without abnormal findings (principal) ==

== ENCOUNTER → 2022-12-09 14:15 | Outpatient (CLI) | payer OTHER, SELFPAY ==
[2022-12-09 15:30] VITALS: PULSE 70; PULSE 71
[2022-12-09 15:36] LABS: Basophils % 0.6 % (0.1-2.0); Eosinophils # 0.1 K/mm3 (0.0-0.4); Eosinophils % 1.3 % (0.1-12.0); Hematocrit 37.7 % (37.0-47.0); Hemoglobin 12.6 g/dL (12.2-16.2); Lymphocytes # 2.7 K/mm3 (0.7-4.5); Lymphocytes % 39.2 % (10-50); Mean Corpuscular HGB Conc 33.3 g/dL (31.8-35.4); Mean Corpuscular Hemoglobin 28.7 pg (27.0-31.2); Mean Corpuscular Volume 86.2 fl (81-99); Mean Platelet Volume 7.6 fl (7.4-10.4); Monocytes # 0.4 K/mm3 (0.1-1.0); Monocytes % 5.9 % (1.7-9.3); Neutrophils # 3.6 K/mm3 (1.8-7.8); Platelet Count 326 K/mm3 (142-424); Red Blood Count 4.38 M/mm3 (4.20-5.40); Red Cell Distribution Width 13.5 % (11.5-17.5); White Blood Count 6.9 K/mm3 (4.8-10.8)
[2022-12-09 15:45] LABS: Hemoglobin A1C 5.2 % (4.0-6.0)
[2022-12-09 16:07] LABS: Alanine Aminotransferase 34 U/L (12-78); Albumin Level 4.5 g/dl (3.5-5.0); Albumin/Globulin Ratio 1.8 (1.1-1.8); Alkaline Phosphatase 54 U/L (38-126); Anion Gap 19.1 mEq/L (5-15); Aspartate Amino Transferase 34 U/L (14-36); Bilirubin,Total 0.3 mg/dl (0.2-1.3); Blood Urea Nitrogen 13 mg/dl (7-17); Calcium 9.3 mg/dl (8.4-10.2); Carbon Dioxide 24 mmol/L (22.0-30.0); Chloride 98 mmol/L (98-107); Chol/HDL Ratio 3.7 (1-3.5); Cholesterol 162 mg/dl (140-200); Estimated Glomerular Filt Rate 91 ml/min (>60); GFR (African American) 110 ML/MIN (>60); Globulin 2.5 g/dL (1.3-3.2); Glucose 78 mg/dl (74-100); HDL Cholesterol 44 mg/dl (40-60); Potassium 4.1 mmoL/L (3.5-5.1); Sodium 137 mmol/L (136-145); Triglycerides 190 mg/dl (30-150); VLDL Cholesterol 38 mg/dL (0-40)
[2022-12-09 16:18] LABS: Direct LDL Cholesterol 103.99 mg/dL (100-129)
[2022-12-11 08:25] LABS: FSH 3.1 mIU/mL (.)
[2022-12-19 16:10] LABS: 1,25 Dihydroxy Vitamin D 38 pg/mL (.); 1,25-Dihydroxy, Vitamin D-2 <10 pg/mL (.); 1,25-Dihydroxy, Vitamin D-3 37 pg/mL (.)
[2022-12-22 10:18] LABS: Testosterone, Total, LC/MS 34 ng/dL (.)
== END ==
PROVIDERS: Obstetrics & Gynecology; PCP Family Medicine; Visit Provider Internal Medicine Pulmonary Disease
DX: Z00.00 Encounter for general adult medical examination without abnormal findings (principal); R06.09 Other forms of dyspnea
CPT/HCPCS: 36415; 80053; 80061; 82652; 82670; 83001; 83036; 84403; 84443; 85025; 94070; 94640; 95070; J7674

== ENCOUNTER 2023-09-20 09:15 | Outpatient (CLI) | payer MEDICAID, SELFPAY ==
--- NOTE | 2023-09-20 09:15 | CT_ITS ---
FINAL REPORT CLINICAL HISTORY: F/U lung nodules COMPARISON: None FINDINGS: Axial CT images of the chest were obtained with contrast. Coronal and sagittal reformatted images were also obtained. This study was performed with techniques to keep radiation doses as low as reasonably achievable, (ALARA). Individualized dose reduction techniques using automated exposure control or adjustment of mA and/or KV according to the patient's size were employed. Calcified mediastinal and right hilar nodes are present. No axillary mass or adenopathy is identified. Small bilateral pleural effusions are present. Several calcified granulomas are present, the largest in the posterior right upper lobe. No noncalcified nodules are seen. No localized pulmonary inflammatory process is identified. Limited images of the upper abdomen reveal no mass or localized inflammatory process. IMPRESSION: Small bilateral pleural effusions. No abnormal nodules or masses are seen. Reviewed, Interpreted and Dictated by Akin Mishra III, MD Transcribed by Flor Romo Authenticated and [facility]
[2023-09-20] MEDS: IOPAMIDOL-370 (76%);100ML BOTTLE 75 ML IV (10:01)
== END 2023-09-20 23:59 ==
LOC: RAD 09:15
PROVIDERS: PCP Family Medicine; Visit Provider Internal Medicine Pulmonary Disease
DX: R59.0 Localized enlarged lymph nodes (principal); R91.1 Solitary pulmonary nodule; R91.8 Other nonspecific abnormal finding of lung field
CPT/HCPCS: 71260; Q9967

== ENCOUNTER 2023-09-27 11:31 | Outpatient (CLI) | payer MEDICAID, SELFPAY ==
[2023-09-27 11:51] LABS: Basophils # 0.1 K/mm3 (0-0.2); Basophils % 1.7 % (0.1-2.0); Eosinophils # 0.3 K/mm3 (0.0-0.4); Eosinophils % 4.1 % (0.1-12.0); Hematocrit 40.2 % (37.0-47.0); Hemoglobin 13.2 g/dL (12.2-16.2); Lymphocytes # 2.1 K/mm3 (0.7-4.5); Lymphocytes % 34.4 % (10-50); Mean Corpuscular HGB Conc 32.9 g/dL (31.8-35.4); Mean Corpuscular Hemoglobin 28.4 pg (27.0-31.2); Mean Corpuscular Volume 86.2 fl (81-99); Monocytes # 0.4 K/mm3 (0.1-1.0); Monocytes % 6.4 % (1.7-9.3); Neutrophils # 3.3 K/mm3 (1.8-7.8); Neutrophils % 53.3 % (37.0-80.0); Platelet Count 292 K/mm3 (142-424); Red Blood Count 4.66 M/mm3 (4.20-5.40); Red Cell Distribution Width 14.7 % (11.5-17.5); White Blood Count 6.1 K/mm3 (4.8-10.8)
[2023-10-03 12:20] LABS: D001-IgE D pteronyssinus <0.10 kU/L (Class 0); D002-IgE D farinae <0.10 kU/L (Class 0); E001-IgE Cat Dander <0.10 kU/L (Class 0); E005-IgE Dog Dander 0.19 kU/L (Class 0/I); E072-IgE Mouse Urine <0.10 kU/L (Class 0); G002-IgE Bermuda Grass <0.10 kU/L (Class 0); G006-IgE Timothy Grass <0.10 kU/L (Class 0); I006-IgE Cockroach, German <0.10 kU/L (Class 0); Immunoglobulin E, Total 9 IU/mL (6-495); M001-IgE Penicillium chrysogen <0.10 kU/L (Class 0); M002-IgE Cladosporium herbarum <0.10 kU/L (Class 0); M003-IgE Aspergillus fumigatus <0.10 kU/L (Class 0); M006-IgE Alternaria alternata <0.10 kU/L (Class 0); T001-IgE Maple/Box Elder <0.10 kU/L (Class 0); T003-IgE Common Silver Birch <0.10 kU/L (Class 0); T006-IgE Cedar, Mountain <0.10 kU/L (Class 0); T007-IgE Oak, White <0.10 kU/L (Class 0); T008-IgE Elm, American <0.10 kU/L (Class 0); T010-IgE Walnut <0.10 kU/L (Class 0); T011-IgE Maple Leaf Sycamore <0.10 kU/L (Class 0); T014-IgE Cottonwood <0.10 kU/L (Class 0); T015-IgE Ash, White <0.10 kU/L (Class 0); T022-IgE Pecan, Hickory <0.10 kU/L (Class 0); T070-IgE White Mulberry <0.10 kU/L (Class 0); W001-IgE Ragweed, Short <0.10 kU/L (Class 0); W011-IgE Thistle, Russian <0.10 kU/L (Class 0); W014-IgE Pigweed, Common <0.10 kU/L (Class 0); W018-IgE Sheep Sorrel <0.10 kU/L (Class 0)
== END 2023-09-27 23:59 ==
LOC: LAB 11:32
PROVIDERS: PCP Family Medicine; Visit Provider Internal Medicine Pulmonary Disease
DX: J30.9 Allergic rhinitis, unspecified (principal)
CPT/HCPCS: 36415; 82785; 85025; 86003

== ENCOUNTER 2024-03-08 07:56 | Outpatient (CLI) | payer MEDICAID, SELFPAY ==
[2024-03-08] MEDS: ALBUTEROL 0.083% 2.5 MG/3 ML NEB IH (15:11)
== END 2024-03-08 23:59 | disposition home or self-care (01) ==
LOC: RT 07:57
PROVIDERS: PCP Family Medicine; Visit Provider Internal Medicine Pulmonary Disease
DX: R06.09 Other forms of dyspnea (principal)
CPT/HCPCS: 94060; 94618; 94726; 94729; J7613

== ENCOUNTER 2024-10-01 12:51 | Outpatient (CLI) | payer OTHER, SELFPAY ==
[2024-10-01 13:28] LABS: Coronavirus 19, PCR Not Detected (NotDetected); Influenza A, PCR Not Detected (NotDetected); Influenza B, PCR Not Detected (NotDetected)
== END 2024-10-01 23:59 | disposition home or self-care (01) ==
LOC: LAB.DROPOF 10-02 08:44
PROVIDERS: PCP Student in an Organized Health Care Education/Training Program; Visit Provider Student in an Organized Health Care Education/Training Program
DX: J06.9 Acute upper respiratory infection, unspecified (principal); Z20.828 Contact with and (suspected) exposure to other viral communicable diseases
CPT/HCPCS: 87636